=== PATIENT | female | born 1940 | race Hispanic/Latino ===

== ENCOUNTER 2017-11-26 14:52 | Emergency (ER) | payer MEDICARE ==
[2017-11-26 14:53] VITALS: BMI 22.6
[2017-11-26 15:11] VITALS: TEMP 98.8; O2SAT 99
--- NOTE | 2017-11-26 16:17 | ED PDOC ---
HPI: Back Time Seen by Provider: 11/26/17 15:21 Chief Complaint (Nursing): Back Pain Chief Complaint (Provider): Hip and Back Pain History Per: Patient History/Exam Limitations: no limitations Onset/Duration Of Symptoms: Days (x3) Current Symptoms Are (Timing): Still Present Previous Symptoms: Chronic Pain Additional Complaint(s): 77 year old female presents to ED with complaints of right hip and lower back pain x3 days and had a left hip fracture x5 years ago. Patient states she was falling out of bed when her son caught her, and notes persistence of pain since then. Patient was seen at [facility] yesterday for the same complaint, and XRs of right hip and back were negative. Patient notes Tramadol taken this morning did not resolve pain. PCP: Keiko - Risk Factors AAA Risk Factors: Pos: Older Than 49 Years Of Age Past Medical History Reviewed: Historical Data, Nursing Documentation, Vital Signs Vital Signs: Last Vital Signs Temp 98.8 F 11/26/17 15:07 Pulse 66 11/26/17 15:07 Resp 18 11/26/17 15:07 BP 167/74 H 11/26/17 15:07 Pulse Ox 99 11/26/17 15:07 - Medical History PMH: Anxiety, Arthritis, Atrial Fibrillation, Cardia Arrhythmia ("Fast" - unsure DX - had ablation), Fractures (Left hip fx repair 5 years ago), HTN, Parkinson's Disease (Resting Parkinson's), Pneumonia, Seizures Denies: Chronic Kidney Disease - Surgical History Surgical History: Cholecystectomy (1996) - Family History Family History: States: Unknown Family Hx - Living Arrangements Living Arrangements: With Family - Social History Drugs: Denies - Immunization History Hx Tetanus Toxoid Vaccination: Yes Hx Influenza Vaccination: Yes Hx Pneumococcal Vaccination: Yes (2013) - Home Medications Home Medications: Ambulatory Orders Medication Instructions Recorded Magnesium Hydroxide [Milk Of 30 ml PO DAILY PRN 09/30/17 Magnesia] Ondansetron ODT [Zofran ODT] 4 mg PO Q6 PRN odt 10/24/17 ALPRAZolam [Xanax] 0.25 mg PO DAILY tab 11/03/17 ALPRAZolam [Xanax] 1 mg PO HS tab 11/03/17 Acetaminophen [Tylenol 325mg tab] 650 mg PO Q6 PRN tab 11/03/17 Carbidopa/Levodopa 25/100 mg 1 tab PO TID tab 11/03/17 [Sinemet] Enoxaparin [Lovenox] 40 mg SC Q24H syr 11/03/17 Famotidine [Pepcid] 20 mg PO DAILY tab 11/03/17 Metoprolol Tartrate [Lopressor] 25 mg PO BID tab 11/03/17 amLODIPine [Norvasc] 10 mg PO DAILY tab 11/03/17 levETIRAcetam [Keppra] 750 mg PO BID tab 11/03/17 traMADol [Ultram] 50 mg PO TID PRN #10 tab 11/03/17 traMADol [Ultram] 50 mg PO TID PRN #15 tab 11/25/17 Lidocaine 5% [Lidoderm] 1 patch TOP DAILY PRN #1 patch 11/26/17 - Allergies Allergies/Adverse Reactions: Allergies Allergy/AdvReac Type Severity Reaction Status Date / Time Penicillins Allergy RASH Verified 11/25/17 06:56 Review of Systems ROS Statement: Except As Marked, All Systems Reviewed And Found Negative Musculoskeletal: Positive for: Back Pain (lower back pain), Other (right hip pain) Physical Exam - Reviewed Nursing Documentation Reviewed: Yes Vital Signs Reviewed: Yes - Physical Exam Appears: Positive for: Non-toxic, No Acute Distress Cardiovascular/Chest: Positive for: Regular Rate, Rhythm. Negative for: Murmur Respiratory: Positive for: Normal Breath Sounds. Negative for: Respiratory Distress Gastrointestinal/Abdominal: Positive for: Soft. Negative for: Tenderness Back: Negative for: Normal Inspection (bilateral lower back tenderness) Extremity: Positive for: Normal ROM (full ROM to right hip. Right hip surgery site clean, dry, and intact). Negative for: Deformity Neurologic/Psych: Positive for: Alert, Oriented, Gait (steady). Negative for: Motor/Sensory Deficits (sensations intact) - ECG O2 Sat by Pulse Oximetry: 99 (RA) Pulse Ox Interpretation: Normal Medical Decision Making Medical Decision Makin Initial impression: acute on chronic right hip pain, lower back pain Initial plan: * CT HIP RT * CT LUMBAR SPINE * Toradol 30mg IM * Re-eval Accession No. : [id number] Patient Name / ID : THERON DIANA / [id number] Exam Date : 11/26/2017 16:09:11 ( Approved ) Study Comment : Sex / Age : F / 77Y Creator : Laura Montgomery MD Dictator : Laura Montgomery MD Diversional Therapist'S Assistant : Tester [employer]ocket Engine : Laura Montgomery MD Approver2 : Report Date : 11/26/2017 17:19:32 My Comment : PROCEDURE: CT Lumbar Spine without contrast HISTORY: Low back pain, s/p fall COMPARISON: None. TECHNIQUE: Axial computed tomography images were obtained of the lumbar spine without the use of intravenous contrast. Coronal and sagittal reformatted images were created and reviewed. Radiation dose: Total exam DLP = 961 mGy-cm. This CT exam was performed using one or more of the following dose reduction techniques: Automated exposure control, adjustment of the mA and/or kV according to patient size, and/or use of iterative reconstruction technique. FINDINGS: VERTEBRAE: Mild scoliosis is noted. No malalignment is noted. No fracture is seen. There is evidence of moderate degenerative disc disease at L4-5 and L5-S1 with vacuum disc abnormality. Disc osteophyte complexes are seen posteriorly at L4-5 and L5-S1 with moderate acquired stenosis noted as well as moderate neural foraminal narrowing. Hypertrophic degenerative facet changes are seen at L4-5 and L5-S1. At the L3-4 disc space level there is evidence of moderate diffuse disc bulging and [id number] acquired central stenosis in combination with ligamentum flavum hypertrophy and facet hypertrophic. There is however evidence of moderate asymmetric left lateral bulging or protrusion which extends into the left neural foramen and causes moderate left neural foraminal narrowing. Milder right neural foraminal narrowing is also seen at this level. Mild bulging of mild acquired stenosis are seen at L2-3 mild left neural foraminal narrowing is noted secondary to some mild asymmetric disc bulging. Mild bulging is seen at L1 -2. No sacral insufficiency fracture or other fracture is noted. No sacroiliac joint widening is seen. DISCS/SPINAL CANAL/NEURAL FORAMINA: L1-2: See above L2-3: See above L3-4: See above L4-5: See above L5-S1: See above PARASPINAL SOFT TISSUES: No paraspinal masses or collections are noted. Visualized retroperitoneum shows no evidence of adenopathy. No hydronephrosis is seen in the kidneys. Slightly prominent soft tissue is once again seen in the left superior iliac fossa and extending towards the anterior right hip region which may reflect hematoma. No obvious extravasation is seen on this noncontrast exam. No presacral masses are noted. OTHER FINDINGS: None. IMPRESSION: No evidence of fracture or malalignment. Moderate degenerative disc disease. Moderate acquired stenosis at L4-5 and L5-S1 moderate neural foraminal narrowing also at these levels. Left asymmetric disc bulging and foraminal protrusion at the L3-4 level causing moderate left neural foraminal narrowing. Milder bulging and right neural foraminal narrowing also at L3-4. There is a mild amount of heterogeneous soft tissue in the superior left iliac fossa region and anterior right hip region which may be related to hematoma. This is also noted on the CT scan of the right hip of the same day. Accession No. : [id number] Patient Name / ID : THERON DIANA / [id number] Exam Date : 11/26/2017 16:12:56 ( Approved ) Study Comment : Sex / Age : F / 77Y Creator : Laura Montgomery MD Dictator : Laura Montgomery MD Diversional Therapist'S Assistant : Tester [employer]ocket Engine : Laura Montgomery MD Approver2 : Report Date : 11/26/2017 17:11:38 My Comment : PROCEDURE: CT of the Right Hip. HISTORY: Fall, R hip pain COMPARISON: None available. Dose is 668 DLP mGy TECHNIQUE: Contiguous axial images of the right hip were obtained. Coronal and sagittal reformats were generated. In addition filtered images were obtained to decrease metallic artifact from the patient's indwelling right hip prosthesis. This CT exam was performed using one or more of the following dose reduction techniques: Automated exposure control, adjustment of the mA and/or kV according to patient size, and/or use of iterative reconstruction technique. FINDINGS: BONES: There is evidence of bilateral hip replacements. These cause moderate metallic artifact limiting evaluation. Right hip replacement appears normal anatomic position. No prior studies are available to assess for interval subtle change. Right acetabular cup appears in normal location. No right hip prosthesis dislocation is seen. Right femoral component appears normal position. No appreciable acute fracture is identified in the right pelvis, ischial region, pubic rami, or femoral shaft. Trochanters appear grossly intact. There are however areas of hyper trophic bony change overlying the right hip and trochanteric regions related to the prior hip replacement. There is some mild soft tissue prominence in the overlying musculature of the right hip and anteriorly in the right groin region probably related to soft tissue strain. Small amount of bursal fluid and/or hematoma is not excluded. No internal pelvic hematoma or obturator hematoma is noted. Symphysis is not widened. Sacroiliac joints are not widened on the right. No appreciable sacral fracture is identified. Small amount of subtle lucency is seen in the right iliac bone posteriorly, nonspecific but may be related to osteopenia. No cortical break is noted in this region. RIGHT HIP JOINT: See above SOFT TISSUES: See above IMPRESSION: No appreciable acute right hip fracture. Indwelling right hip prosthesis appears normal anatomic position. Hypertrophic bony changes adjacent to the prosthesis probably reflect hypertrophic bony growth. Mild nonspecific soft tissue swelling and edema overlying the right hip region may be related to soft tissue strain. Small amount of hematoma in the soft tissues is not excluded. Scribe Attestation: Documented by Destiny Chen acting as a scribe Pippa Santana MD. MD [place] Attestation: All medical record entries made by the Scribe were at my direction and personally dictated by me. I have reviewed the chart and agree that the record accurately reflects my personal performance of the history, physical exam, medical decision making, and the department course for this patient. I have also personally directed, reviewed, and agree with the discharge instructions and disposition. Disposition - Clinical Impression Clinical Impression: Acute exacerbation of chronic low back pain - Patient ED Disposition Is Patient to be Admitted: No - Disposition Disposition: Routine/Home Disposition Time: 17:50 Condition: IMPROVED Additional Instructions: FOLLOW-UP WITH PMD WITHIN 2 DAYS FOR REEVALUATION. Prescriptions: Lidocaine 5% [Lidoderm] 1 patch TOP DAILY PRN #1 patch PRN Reason: Pain, Severe (8-10) Instructions: Low Back Pain (DC) Forms: [facility] (Italian)
--- NOTE | 2017-11-26 17:13 | CT ---
PROCEDURE: CT of the Right Hip. HISTORY: Fall, R hip pain COMPARISON: None available. Dose is 668 DLP mGy TECHNIQUE: Contiguous axial images of the right hip were obtained. Coronal and sagittal reformats were generated. In addition filtered images were obtained to decrease metallic artifact from the patient's indwelling right hip prosthesis. This CT exam was performed using one or more of the following dose reduction techniques: Automated exposure control, adjustment of the mA and/or kV according to patient size, and/or use of iterative reconstruction technique. FINDINGS: BONES: There is evidence of bilateral hip replacements. These cause moderate metallic artifact limiting evaluation. Right hip replacement appears normal anatomic position. No prior studies are available to assess for interval subtle change. Right acetabular cup appears in normal location. No right hip prosthesis dislocation is seen. Right femoral component appears normal position. No appreciable acute fracture is identified in the right pelvis, ischial region, pubic rami, or femoral shaft. Trochanters appear grossly intact. There are however areas of hyper trophic bony change overlying the right hip and trochanteric regions related to the prior hip replacement. There is some mild soft tissue prominence in the overlying musculature of the right hip and anteriorly in the right groin region probably related to soft tissue strain. Small amount of bursal fluid and/or hematoma is not excluded. No internal pelvic hematoma or obturator hematoma is noted. Symphysis is not widened. Sacroiliac joints are not widened on the right. No appreciable sacral fracture is identified. Small amount of subtle lucency is seen in the right iliac bone posteriorly, nonspecific but may be related to osteopenia. No cortical break is noted in this region. RIGHT HIP JOINT: See above SOFT TISSUES: See above IMPRESSION: No appreciable acute right hip fracture. Indwelling right hip prosthesis appears normal anatomic position. Hypertrophic bony changes adjacent to the prosthesis probably reflect hypertrophic bony growth. Mild nonspecific soft tissue swelling and edema overlying the right hip region may be related to soft tissue strain. Small amount of hematoma in the soft tissues is not excluded.
--- NOTE | 2017-11-26 17:21 | CT ---
PROCEDURE: CT Lumbar Spine without contrast HISTORY: Low back pain, s/p fall COMPARISON: None. TECHNIQUE: Axial computed tomography images were obtained of the lumbar spine without the use of intravenous contrast. Coronal and sagittal reformatted images were created and reviewed. Radiation dose: Total exam DLP = 961 mGy-cm. This CT exam was performed using one or more of the following dose reduction techniques: Automated exposure control, adjustment of the mA and/or kV according to patient size, and/or use of iterative reconstruction technique. FINDINGS: VERTEBRAE: Mild scoliosis is noted. No malalignment is noted. No fracture is seen. There is evidence of moderate degenerative disc disease at L4-5 and L5-S1 with vacuum disc abnormality. Disc osteophyte complexes are seen posteriorly at L4-5 and L5-S1 with moderate acquired stenosis noted as well as moderate neural foraminal narrowing. Hypertrophic degenerative facet changes are seen at L4-5 and L5-S1. At the L3-4 disc space level there is evidence of moderate diffuse disc bulging and bhid-wy-mtpyieyy acquired central stenosis in combination with ligamentum flavum hypertrophy and facet hypertrophic. There is however evidence of moderate asymmetric left lateral bulging or protrusion which extends into the left neural foramen and causes moderate left neural foraminal narrowing. Milder right neural foraminal narrowing is also seen at this level. Mild bulging of mild acquired stenosis are seen at L2-3 mild left neural foraminal narrowing is noted secondary to some mild asymmetric disc bulging. Mild bulging is seen at L1-2. No sacral insufficiency fracture or other fracture is noted. No sacroiliac joint widening is seen. DISCS/SPINAL CANAL/NEURAL FORAMINA: L1-2: See above L2-3: See above L3-4: See above L4-5: See above L5-S1: See above PARASPINAL SOFT TISSUES: No paraspinal masses or collections are noted. Visualized retroperitoneum shows no evidence of adenopathy. No hydronephrosis is seen in the kidneys. Slightly prominent soft tissue is once again seen in the left superior iliac fossa and extending towards the anterior right hip region which may reflect hematoma. No obvious extravasation is seen on this noncontrast exam. No presacral masses are noted. OTHER FINDINGS: None. IMPRESSION: No evidence of fracture or malalignment. Moderate degenerative disc disease. Moderate acquired stenosis at L4-5 and L5-S1 moderate neural foraminal narrowing also at these levels. Left asymmetric disc bulging and foraminal protrusion at the L3-4 level causing moderate left neural foraminal narrowing. Milder bulging and right neural foraminal narrowing also at L3-4. There is a mild amount of heterogeneous soft tissue in the superior left iliac fossa region and anterior right hip region which may be related to hematoma. This is also noted on the CT scan of the right hip of the same day.
[2017-11-26 18:07] VITALS: BP 150/69; PULSE 69; RESP 16
== END 2017-11-26 17:55 | disposition home or self-care (01) ==
LOC: H.ER 14:52
DX: M54.5 Low back pain (principal); G89.29 Other chronic pain; G20 Parkinson's disease; I10 Essential (primary) hypertension; Z96.641 Presence of right artificial hip joint; Z88.0 Allergy status to penicillin; W06.XXXA Fall from bed, initial encounter
CPT/HCPCS: 72131; 73700; 96372; 99284; J1885